=== PATIENT | female | born 1945 | race Caucasian/White ===

== ENCOUNTER 2017-06-06 07:38 | Day surgery (SDC) | payer BC ==
--- NOTE | 2017-06-06 07:05 | History and Physical Report ---
DATE: 06/06/2017. CHIEF COMPLAINT AND HISTORY OF CHIEF COMPLAINT: This patient presents with a history of an intractable postlaminectomy radiculitis and a spinal opioid infusion system with hydromorphone. Over the last number of refills, a battery depletion has been identified. She is here for battery replacement. PAST MEDICAL HISTORY: Hypertension, hypothyroidism. PAST SURGICAL HISTORY: Cervical spine fusion. EMPLOYMENT STATUS: Retired. MEDICATIONS ON ADMISSION: To be provided. ALLERGIES: To be provided. REVIEW OF SYSTEMS: The patient seems appropriate and in no acute distress. The remainder of the systems review shows headaches, hypertension, reflux, degenerative arthritis, fibromyalgia, depression, difficulty sleeping. SOCIAL HISTORY: Noncontributory. FAMILY HISTORY: Hypertension, coronary artery disease. PHYSICAL EXAMINATION: General: Height and weight are not known. Vital Signs: Not available. HEENT: Within normal limits. Lungs: Clear. Heart: Regular rate and rhythm. Abdomen: Nontender. Musculoskeletal: Examination of the musculoskeletal system shows diffuse tenderness throughout the cervical and lumbar spine. Range of motion does produce pain into most areas. Ambulation: No assistive device utilized. Neurologic: Cranial nerves are intact. IMPRESSION: 1. POSTCERVICAL LAMINECTOMY SYNDROME, ICD-10 CODE M96.1. 2. CERVICAL RADICULITIS, ICD-10 CODE M54.13. 3. IMPLANTED SPINAL OPIOID INFUSION SYSTEM WITH HYDROMORPHONE. PLAN: The patient is here for replacement of the pump battery on an outpatient basis. No changes to the infusion characteristics will be made. The potential risks, side effects, and complications were reviewed and discussed. MARY MONTOYA D.O. Date & Time JOB NUMBER: [id number] cc: Billy Pacheco
[~2017-06-06 07:38] MED LIST: ACETAMINOPHEN 1,000 MG/100 ML BTL IV ONE; FAMOTIDINE 20MG TABLET PO ONE; HYDROMORPHONE HCL 0.06 GM in 0.9 % SODIUM CHLORIDE 10ML VIA 20 ML IV ONE; HYDROMORPHONE HCL/PF 0.002 MG in 0.9 % SODIUM CHLORIDE 10ML VIA 0.998 ML IVP ONE; MECLIZINE 25 MG TABLET PO ONE; METOCLOPRAMIDE 10 MG TABLET PO ONE; VANCOMYCIN HCL 1,000 MG in 0.9 % SODIUM CHLORIDE 250ML 250 ML IVPB ONE
[2017-06-06] MEDS ORDERED: KETOROLAC 30 MG/ML VIAL IVP ONE (07:39)
[2017-06-06] MEDS ORDERED: FENTANYL PF 100MCG/2ML VIAL IV ONE (07:39)
[2017-06-06] MEDS ORDERED: MIDAZOLAM HCL 2MG/2ML VIAL IV ONE (07:39)
[2017-06-06] MEDS ORDERED: *PACU ONLY* KETAMINE HCL 10 MG/ML (20ML) VIAL IV ONE (07:39)
[2017-06-06] MEDS ORDERED: LIDOCAINE 1% W/EPI 1:200,000 MPF 30ML SQ ONE (07:39)
[2017-06-06] MEDS ORDERED: PROPOFOL 10 MG/ML VIAL IV ONE (07:39)
[2017-06-06] MEDS ORDERED: VANCOMYCIN HCL 500 MG VIAL IV ONE (07:39)
[2017-06-06] MEDS ORDERED: BUPIVACAINE 0.75% W/EPI MPF 30ML VIAL IVP ONE (07:39)
--- NOTE | 2017-06-07 05:56 | Operative Note - [facility] ---
DATE OF SURGERY: 06/06/2017. PREOPERATIVE DIAGNOSES: 1. POSTCERVICAL LAMINECTOMY SYNDROME, ICD-10 CODE M96.1. 2. CERVICAL RADICULITIS, ICD-10 CODE M54.13. 3. INTRASPINAL OPIOID INFUSION SYSTEM WITH HYDROMORPHONE WITH BATTERY DEPLETION. POSTOPERATIVE DIAGNOSES: 1. POSTCERVICAL LAMINECTOMY SYNDROME, ICD-10 CODE M96.1. 2. CERVICAL RADICULITIS, ICD-10 CODE M54.13. 3. INTRASPINAL OPIOID INFUSION SYSTEM WITH HYDROMORPHONE WITH BATTERY DEPLETION. OPERATION: 1. Incision, subcutaneous dissection, and removal and replacement of programmable pump, Medtronic 20 mL prefilled with hydromorphone. 2. Diagnostic myelography with radiologic supervision and interpretation. 3. Programming of pump to deliver by continuous infusion hydromorphone at 0.27 mg per day. SURGEON: Jey Schaeffer D.O. ANESTHESIA: Local sedation. ANESTHESIA PROVIDER: Heike Carrillo CRNA. INDICATION: This patient presents with a history of intractable cervical radiculitis managed by a spinal opioid infusion device infusing hydromorphone with a base rate of 0.27 mg per day. Over the last number of refills, it was found that she had battery depletion. She is here for pump battery change with refill. PROCEDURE: Intravenous line, vital sign monitoring, and intravenous sedation. Prepped and draped with sterile technique with the patient positioned prone. Sterile prep and sterile technique. Under imaging the right posterior margin pump pouch was infiltrated with local. An incision was made and subcutaneous dissection was conducted to the pump pouch. The pouch was opened and the pump was exteriorized and from the indwelling catheter. Prior to the separation, a 24-gauge Olmos needle was inserted into the access port, and 1.0 mL of catheter contents was aspirated, clearing the catheter of opioid and CSF mixture. After the pump was from the catheter, a new pump was placed onto the field prefilled with hydromorphone, 3.0 mg per mL concentration. The existing catheter was interfaced to the pump. Antibiotic irrigation and Bovie for hemostasis. The pump was secured to the pouch with a nonabsorbable suture and pump eyelet. With the pump in the pouch, a 24-gauge Olmos needle was then inserted back into the access port. Contrast was injected. The resulting myelogram with radiologic supervision and interpretation showed the tip of the catheter at T5. Flow characteristics were appropriate for the space. Once the flow characteristics were identified in appropriate position, the needle was removed. The pouch was then closed with Vicryl for the fascia and running subcuticular Vicryl for the skin. Dermabond closure. The pump was then programmed to deliver by continuous infusion hydromorphone at 0.27 mg per day. Dermabond closure intact. She was transported to the recovery room stable, showing no side effects from the procedure or the sedation. When fully awake, alert, and stable, she was discharged home. DISCHARGE INSTRUCTIONS: 1. The sites to remain clean and dry. No showering or bathing in any way that would disrupt dressings. If this happens, contact the clinic. 2. Standard medications to be resumed including an antibiotic with Levaquin 500 mg once a day for 14 days. If she is sensitive to this medication, she should notify the clinic and we will change the antibiotic. 3. The patient will be seen in the office in five to seven days. She should keep her activity levels low. The dressing should stay intact. If that should come loose, she should contact the clinic for a dressing change. Should there be any drainage or other indications of infections, she is to contact the clinic for further instructions. 4. All other remaining instructions were provided. Numbers to contact with problems given, and she will be discharged. JEY SCHAEFFER D.O. Date & Time JOB NUMBER: [id number] cc: Billy Pacheco
--- NOTE | 2017-06-07 08:52 | RADIOLOGY REPORT ---
EXAM: THORACOLUMBAR SPINE, SINGLE VIEW HISTORY: POSTOP. TECHNIQUE: AP view of the thoracic and lumbar spines was obtained. Comparison: None. Encounter: Initial. FINDINGS: Intrathecal wire projects over the spine with the distal tip projecting over the T7 vertebral body. Degenerative changes of the thoracic and lumbar spines. Vascular calcifications. IMPRESSION: THE DISTAL TIP OF THE CATHETER PROJECTS OVER T7. JOB NUMBER: [id number] MTDD
== END 2017-06-06 11:30 | disposition home or self-care (01) ==
LOC: SUR 07:38
PROVIDERS: ATTEND Pain Medicine Interventional Pain Medicine
DX: T85.695A Other mechanical complication of other nervous system device, implant or graft, initial encounter (principal); M54.13 Radiculopathy, cervicothoracic region; M96.1 Postlaminectomy syndrome, not elsewhere classified; E78.00 Pure hypercholesterolemia, unspecified; M79.7 Fibromyalgia; E03.9 Hypothyroidism, unspecified; M06.9 Rheumatoid arthritis, unspecified
CPT/HCPCS: 62368; 72020; 62362; 00300; Q9967; J1885; J3370; J1170; J3010; J7050